=== PATIENT | female | born 1955 | race Caucasian/White ===

== ENCOUNTER 2019-07-20 19:22 | Emergency (ER) | payer MEDICARE ==
[~2019-07-20] VITALS: Ht 160 cm; Wt 100.0 kg
[2019-07-20] MEDS ORDERED: MORPHINE 4 MG/ML 1ML VIAL/SYRINGE (J2270) IV PRN (20:30)
[2019-07-20] MEDS ORDERED: KETOROLAC 30 MG/ML VIAL (J1885) IV ONE (20:30)
[2019-07-20] MEDS ORDERED: ONDANSETRON 4MG/2ML VIAL (J2405) IV ONE (20:30)
[2019-07-20 21:05] LABS: BASO # 0.1 10^3/uL (0.0-0.2); BASO % 0.7 % (0.0-1.0); EOS # 0.3 10^3/uL (0.0-0.5); EOS % 2.7 % (0.0-3.0); HEMATOCRIT 34.6 % (36.0-47.0); HEMOGLOBIN 11.3 g/dl (12.0-15.5); LYMPH # 1.5 10^3/uL (1.5-5.0); LYMPH % 14.1 % (24.0-44.0); MEAN CORPUSCULAR HEMOGLOBIN 30.1 pg (27.0-33.0); MEAN CORPUSCULAR HGB CONC 32.7 g/dl (32.0-36.5); MONO % 9.3 % (0.0-5.0); NEUTROPHILS # 7.7 10^3/uL (1.5-8.5); NEUTROPHILS % 72.6 % (36.0-66.0); PLATELET COUNT, AUTOMATED 285 10^3/uL (150-450); RED BLOOD COUNT 3.76 10^6/uL (4.00-5.40); WHITE BLOOD COUNT 10.6 10^3/uL (4.0-10.0)
[2019-07-20 21:19] LABS: INR 1.1
[2019-07-20] MEDS ORDERED: OXYC15TA76 PO (21:21)
[2019-07-20] MEDS ORDERED: FLOM0.4C39 PO (21:21)
[2019-07-20] MEDS ORDERED: GABA-843 PO (21:21)
[2019-07-20] MEDS ORDERED: AMIT-255 PO (21:21)
[2019-07-20] MEDS ORDERED: ONDA8TAB7 PO (21:21)
[2019-07-20] MEDS ORDERED: EFFE150C2 PO (21:21)
[2019-07-20] MEDS ORDERED: LEVO25TA5 PO (21:21)
[2019-07-20] MEDS ORDERED: QUET5TAB PO (21:21)
[2019-07-20] MEDS ORDERED: BETH1TAB3 PO (21:21)
[2019-07-20] MEDS ORDERED: BACL1TAB9 PO (21:21)
[2019-07-20] MEDS ORDERED: ISOVUE-370 76% 100ML VIAL (Q9967) As Ordered ONE (21:39)
[2019-07-20 21:49] LABS: ALBUMIN 3.6 GM/DL (3.2-5.2); ALT/SGPT 17 U/L (12-78); BILIRUBIN,DIRECT 0.2 MG/DL (0.0-0.2); BILIRUBIN,TOTAL 0.4 MG/DL (0.2-1.0); CK-MB VALUE MASS < 1.0 NG/ML (<3.6); CPK CREATINE PHOSPHOKINASE 97 U/L (26-192); LIPASE 78 U/L (73-393); MB/CK RELATIVE INDEX 1.03 (< OR =4); TOTAL PROTEIN 7.1 GM/DL (6.4-8.2); TROPONIN I < 0.02 NG/ML (< 0.10)
--- NOTE | 2019-07-20 23:01 | REPVR ---
PROCEDURE INFORMATION: Exam: CT Abdomen and Pelvis With Contrast Exam date and time: 07/20/2019 9:22 PM Clinical history: 63 years old, female; Patient HX: Back pain HX same; Additional info: Thoracic/lumbar pain, generalized abd pain TECHNIQUE: Imaging protocol: Computed tomography of the abdomen and pelvis with intravenous contrast. Radiation optimization: All CT scans at this facility use at least one of these dose optimization techniques: automated exposure control; mA and/or kV adjustment per patient size (includes targeted exams where dose is matched to clinical indication); or iterative reconstruction. Contrast material: ISO; Contrast volume: 100 ml; Contrast route: AC; COMPARISON: No relevant prior studies available. FINDINGS: Lungs: Minimal bibasilar fibro-atelectatic change. Liver: Normal. No mass. Gallbladder and bile ducts: Status post cholecystectomy. Pancreas: Normal. No ductal dilation. Spleen: Normal. No splenomegaly. Adrenals: Normal. No mass. Kidneys and ureters: Normal. No hydronephrosis. Stomach and bowel: Mild colonic stool and gas primarily proximally. There is colonic diverticulosis, greatest in the sigmoid without evidence of diverticulitis. Appendix: There are no changes of appendicitis. A normal appendix is not seen. Intraperitoneal space: Unremarkable. No free air. No significant fluid collection. Vasculature: There is mild calcification of the abdominal aorta with extension into the iliac arteries. Lymph nodes: Unremarkable. No enlarged lymph nodes. Bladder: Unremarkable as visualized. Reproductive: Status post hysterectomy. Bones/joints: Bilateral hip prostheses with beam hardening artifact. Degenerative changes of the lumbar spine with facet arthropathy and mild anterolisthesis of L4 relative to L5. There is lower lumbar neural foraminal stenosis. Soft tissues: Unremarkable. IMPRESSION: 1. There has been prior cholecystectomy and hysterectomy. 2. Bilateral hip prostheses with beam hardening artifact. 3. Colonic diverticulosis without diverticulitis. 4. Degenerative changes of the lumbar spine with facet arthropathy and mild anterolisthesis of L4 relative to L5. There is neural foraminal stenosis bilaterally at L4-L5 and on the right at L5-S1. Electronically signed by: Perfecto Bailey On 07/20/2019 23:00:51 PM
--- NOTE | 2019-07-20 23:05 | REPVR ---
PROCEDURE INFORMATION: Exam: CT Chest With Contrast Exam date and time: 07/20/2019 9:22 PM Clinical history: 63 years old, female; Pain; Other: Back; Additional info: Thoracic/lumbar pain, generalized abd pain TECHNIQUE: Imaging protocol: Computed tomography of the chest with intravenous contrast. Radiation optimization: All CT scans at this facility use at least one of these dose optimization techniques: automated exposure control; mA and/or kV adjustment per patient size (includes targeted exams where dose is matched to clinical indication); or iterative reconstruction. Contrast material: ISO; Contrast volume: 100 ml; Contrast route: AC; COMPARISON: No relevant prior studies available. FINDINGS: Tubes, catheters and devices: Tubular density in the medial left breast which may reflect prior tunneled catheter. Lungs: Minimal bibasilar fibro-atelectatic change. Pleural space: Unremarkable. No pneumothorax. No pleural effusion. Heart: Unremarkable. No cardiomegaly. No pericardial effusion. Pulmonary arteries: The main pulmonary artery measures 26 mm. Aorta: The ascending thoracic aorta measures 35 mm. Lymph nodes: Unremarkable. No enlarged lymph nodes. Gallbladder and bile ducts: Status post cholecystectomy. Bones/joints: Anterior fusion of the lower cervical spine at C6-C7 and posterior fusion to T1 level. Mild degenerative spurring throughout the thoracic spine. Soft tissues: Unremarkable. IMPRESSION: 1. Lower anterior cervical fusion at C6-C7 and posterior cervical thoracic fusion to the T1 level. 2. Minimal bibasilar fibro-atelectatic change. 3. Foreign body in the medial left breast suggesting residua of previous tunneled catheter. 4. Status post cholecystectomy. Electronically signed by: Perfecto Bailey On 07/20/2019 23:05:26 PM
[2019-07-21] MEDS ORDERED: ROBA750T4 PO (00:33)
[2019-07-21] MEDS ORDERED: NAPR-837 PO (00:33)
[2019-07-21 00:40] VITALS: BP 120/66
== END 2019-07-21 00:56 | disposition home or self-care (01) ==
LOC: M ED 19:22
DX: M54.9 Dorsalgia, unspecified (principal); G89.29 Other chronic pain; M19.90 Unspecified osteoarthritis, unspecified site; M79.7 Fibromyalgia; K57.30 Diverticulosis of large intestine without perforation or abscess without bleeding; M51.36 Other intervertebral disc degeneration, lumbar region; M43.22 Fusion of spine, cervical region; Z96.643 Presence of artificial hip joint, bilateral; Z79.899 Other long term (current) drug therapy; Z88.0 Allergy status to penicillin; Z88.8 Allergy status to other drugs, medicaments and biological substances
CPT/HCPCS: 71260; 74177; 80047; 80076; 82550; 82553; 83605; 83690; 84484; 85025; 85610; 85730; 87040; 93041; 96374; 96375; 99284; J1885; J2270; J2405; J3360; Q9967